=== PATIENT | female | born 1965 | race American Indian/Alaskan Native ===

== ENCOUNTER 2017-12-12 22:06 | Emergency (ER) | payer OTHER ==
[~2017-12-12 22:06] MED LIST: LOPRESSOR IV ONE; ZOFRAN IV ONE
--- NOTE | 2017-12-12 22:06 | Emergency Department Report ---
ED General Adult HPI - General Chief complaint: High BP Stated complaint: LIGHT HEADED/ HTN Source: patient, EMS Mode of arrival: Stretcher Limitations: No Limitations - History of Present Illness Initial comments: Patient is 52 years old female with history of hypertension on clonidine and metoprolol. Patient stated that she was out of our blood pressure medicine for the last 2 days. Presented with a high blood pressure and headache. Patient denied any weakness, numbness or tingling sensation. No chest pain or shortness of breath. Patient stated that she was recently diagnosed with lung cancer and she is being followed by [facility]. Patient stated that she is having some nausea and vomiting also. - Related Data Allergies Allergy/AdvReac Type Severity Reaction Status Date / Time azithromycin Allergy Hives Verified 12/12/17 21:59 doxycycline Allergy Hives Verified 12/12/17 21:59 lisinopril Allergy Angioedema Verified 12/12/17 21:59 ED Review of Systems ROS: Stated complaint: LIGHT HEADED/ HTN Other details as noted in HPI Comment: All other systems reviewed and negative Constitutional: denies: chills, fever Respiratory: denies: cough, orthopnea, shortness of breath, SOB with exertion Cardiovascular: denies: chest pain, palpitations Gastrointestinal: nausea, vomiting. denies: abdominal pain, diarrhea, constipation, hematemesis, melena, hematochezia Genitourinary: denies: urgency, dysuria Neurological: headache. denies: weakness, numbness, paresthesias, confusion, abnormal gait ED Past Medical Hx - Past Medical History Previous Medical History?: Yes Hx Hypertension: Yes Hx of Cancer: Yes (lung) - Surgical History Past Surgical History?: Yes Additional Surgical History: lobectomy - Social History Smoking Status: Current Every Day Smoker Substance Use Type: Alcohol ED Physical Exam - General Limitations: No Limitations General appearance: alert, in no apparent distress - Head Head exam: Present: atraumatic, normocephalic, normal inspection - Eye Eye exam: Present: normal appearance, PERRL - ENT ENT exam: Present: normal exam, normal orophraynx, mucous membranes moist - Neck Neck exam: Present: normal inspection, full ROM. Absent: tenderness, meningismus, lymphadenopathy - Respiratory Respiratory exam: Present: normal lung sounds bilaterally. Absent: respiratory distress, wheezes, rales, rhonchi, accessory muscle use, decreased breath sounds , prolonged expiratory - Cardiovascular Cardiovascular Exam: Present: regular rate, normal rhythm, normal heart sounds - GI/Abdominal GI/Abdominal exam: Present: soft, normal bowel sounds. Absent: distended, tenderness, guarding, rebound, rigid, organomegaly, mass, bruit, pulsatile mass - Extremities Exam Extremities exam: Present: normal inspection, full ROM, normal capillary refill. Absent: pedal edema, calf tenderness - Back Exam Back exam: Present: normal inspection, full ROM. Absent: tenderness, CVA tenderness (R), CVA tenderness (L), muscle spasm, paraspinal tenderness, vertebral tenderness - Neurological Exam Neurological exam: Present: alert, oriented X3, CN II-XII intact, normal gait, reflexes normal - Skin Skin exam: Present: warm, intact, normal color ED Course Vital Signs 12/12/17 12/12/17 12/12/17 21:47 21:48 21:49 Pulse Rate 86 86 87 Respiratory 20 16 20 Rate Blood Pressure 201/154 201/154 Blood Pressure [Right] O2 Sat by Pulse 96 Oximetry 12/12/17 12/12/17 12/12/17 21:51 21:53 22:00 Pulse Rate 84 85 Respiratory 15 16 18 Rate Blood Pressure 201/154 201/154 Blood Pressure [Right] O2 Sat by Pulse 96 94 98 Oximetry 12/12/17 12/12/17 12/12/17 22:45 23:00 23:14 Pulse Rate 80 78 Respiratory 16 13 16 Rate Blood Pressure 164/97 170/103 Blood Pressure [Right] O2 Sat by Pulse 94 Oximetry 12/12/17 12/13/17 12/13/17 23:50 01:00 02:00 Pulse Rate 85 72 72 Respiratory 14 15 Rate Blood Pressure 164/101 158/94 168/104 Blood Pressure [Right] O2 Sat by Pulse 91 90 Oximetry 12/13/17 12/13/17 12/13/17 02:31 02:32 02:56 Pulse Rate 74 72 Respiratory 16 16 Rate Blood Pressure 164/104 Blood Pressure 158/100 [Right] O2 Sat by Pulse 94 Oximetry 12/13/17 12/13/17 03:00 03:57 Pulse Rate 72 74 Respiratory 17 18 Rate Blood Pressure 148/95 Blood Pressure 159/103 [Right] O2 Sat by Pulse 94 94 Oximetry ED Medical Decision Making - Lab Data Result diagrams: 12/12/17 22:12 12/12/17 22:12 - EKG Data -: EKG Interpreted by [facility] EKG shows normal: sinus rhythm Rate: normal - EKG Data Interpretation: no acute changes - Radiology Data Radiology results: report reviewed Referring Physician: SUSHMA RUGGIERO Patient Name: CHANDRIKA VAUGHAN Date of : 1965 Sex: Female Report Date: 2017-12-12 Report Status: Finalized Findings [facility] [address] [place] [address] Cat Scan Report Signed Patient: HCANDRIKA VAUGHAN MR#: [id number] : 1965 Acct:[id number] Age/Sex: 52 / F ADM Date: 12/12/17 Loc: ED Attending Dr: Ordering Physician: SUSHMA RUGGIERO Date of Service: 12/12/17 Procedure(s): CT head/brain wo con Accession Number(s): [id number] cc: SUSHMA RUGGIERO FINAL REPORT PROCEDURE: CT HEAD/BRAIN WO CON TECHNIQUE: Computerized tomography of the head was performed without contrast material. HISTORY: Headache, high BP COMPARISON: No prior studies are available for comparison. FINDINGS: Skull and scalp: Normal. Paranasal sinuses: Mild degree mucosal thickening is noted involving bilateral maxillary sinuses.. Ventricles and subarachnoid spaces: Normal. Cerebrum: No evidence of hemorrhage, acute infarction or mass . Cerebellum and brainstem: No evidence of hemorrhage, acute infarction or mass. Vasculature: Normal. Comments: None. IMPRESSION: No acute intracranial abnormality Chronic maxillary sinusitis Transcribed By: [facility] [place] Dictated By: CAMI CHIANG Electronically Authenticated By: CAMI CHIANG Signed Date/Time: 12/12/172236 DD/ 36 TD/TT: 12/12/172236 - Medical Decision Making Patient is 52 years old female with history of hypertension on clonidine and metoprolol. Patient stated that she was out of our blood pressure medicine for the last 2 days. Presented with a high blood pressure and headache. Patient denied any weakness, numbness or tingling sensation. No chest pain or shortness of breath. Patient stated that she was recently diagnosed with lung cancer and she is being followed by [facility]. Patient stated that she is having some nausea and vomiting also. Patient stated that she is feeling much better. Headache resolved. CT brain is negative for acute finding. Patient blood pressure went down to 158/101. Patient will be discharged home in a stable clinical condition. I will provide how with a prescription for her blood pressure medicine and advised to follow- up with her primary care physician in the next 2-3 days. Critical care attestation.: If time is entered above; I have spent that time in minutes in the direct care of this critically ill patient, excluding procedure time. ED Disposition Clinical Impression: Malignant hypertension, Headache Disposition: DC-01 TO HOME OR SELFCARE Is pt being admited?: No Condition: Stable Instructions: Hypertension (ED) Referrals: PRIMARY CARE, [Primary Care Provider] - 3-5 Days
--- NOTE | 2017-12-12 22:38 | Cat Scan Report ---
FINAL REPORT PROCEDURE: CT HEAD/BRAIN WO CON TECHNIQUE: Computerized tomography of the head was performed without contrast material. HISTORY: Headache, high BP COMPARISON: No prior studies are available for comparison. FINDINGS: Skull and scalp: Normal. Paranasal sinuses: Mild degree mucosal thickening is noted involving bilateral maxillary sinuses.. Ventricles and subarachnoid spaces: Normal. Cerebrum: No evidence of hemorrhage, acute infarction or mass . Cerebellum and brainstem: No evidence of hemorrhage, acute infarction or mass. Vasculature: Normal. Comments: None. IMPRESSION: No acute intracranial abnormality Chronic maxillary sinusitis
[2017-12-12] MEDS ORDERED: MORPHINE ONE (22:43)
[2017-12-12] MEDS ORDERED: MORPHINE IV ONE (22:43)
[2017-12-12 22:45] LABS: Hematocrit 40.8 % (30.3-42.9); Hemoglobin 13.6 gm/dl (10.1-14.3); Mean Corpuscular HGB Conc 33 % (30-34); Mean Corpuscular Hemoglobin 34 pg (28-32); Mean Corpuscular Volume 101 fl (79-97); Platelet Count 297 K/mm3 (140-440); Red Blood Count 4.04 M/mm3 (3.65-5.03); Red Cell Distribution Width 14.3 % (13.2-15.2)
[2017-12-12 22:53] LABS: INR 0.95 (0.87-1.13)
[2017-12-12 22:54] LABS: Partial Thromboplastin Time 24.9 Sec. (24.2-36.6)
[2017-12-12 23:24] LABS: BUN/Creatinine Ratio 9; Blood Urea Nitrogen 6 mg/dL (7-17); Hemolysis Index 29
[2017-12-12 23:25] LABS: Alanine Aminotransferase 51 units/L (7-56); Albumin 4.1 g/dL (3.9-5); Lipase 38 units/L (13-60)
[2017-12-12 23:36] LABS: Bilirubin,Direct < 0.2 mg/dL (0-0.2)
[2017-12-12] MEDS ORDERED: CATAPRES PO ONE (23:39)
[2017-12-13 01:42] LABS: Bilirubin,Urine NEG (Negative); Blood,Urine MOD (Negative); Color,Urine Yellow (Yellow); Mucus,Urine FEW /HPF; Urobilinogen,Urine < 2.0 mg/dL (<2.0)
[2017-12-13] MEDS ORDERED: LOPRESSOR IV ONE ×2 (02:20→02:29)
[2017-12-13] MEDS ORDERED: TYLENOL ONE (02:20)
[2017-12-13] MEDS ORDERED: TYLENOL PO ONE (02:29)
[2017-12-13 03:41] LABS: Eosinophils % (Manual) 0 % (0.0-4.3); Platelet Estimate Consistent w Auto; Total Cells Counted 100
[2017-12-13 03:58] VITALS: BP 159/103
== END 2017-12-13 04:50 | disposition home or self-care (01) ==
LOC: ED 22:06
DX: I10 Essential (primary) hypertension (principal); F17.200 Nicotine dependence, unspecified, uncomplicated; Z88.1 Allergy status to other antibiotic agents; Z88.8 Allergy status to other drugs, medicaments and biological substances
CPT/HCPCS: 36415; 70450; 80048; 80074; 81001; 83690; 84484; 85007; 85025; 85610; 85730; 93005; 93010; 96374; 96375; 99285; J2270; J2405